=== PATIENT | male | born 1945 ===

== ENCOUNTER 2018-12-19 18:05 | Emergency (ER) | payer SELFPAY ==
[2018-12-19] MEDS ORDERED: Oxymetazoline HCl 0.05% ( 15 ML ) ONE (18:18)
== END 2018-12-19 19:10 | disposition home or self-care (01) ==
LOC: SCSER 18:05
DX: R04.0 Epistaxis (principal); E11.9 Type 2 diabetes mellitus without complications; E03.9 Hypothyroidism, unspecified; E78.5 Hyperlipidemia, unspecified; I10 Essential (primary) hypertension; Z79.899 Other long term (current) drug therapy
CPT/HCPCS: 99283